=== PATIENT | male | born 1955 | race Caucasian/White ===

== ENCOUNTER 2018-08-28 05:03 | Outpatient (CLI) | payer BC, MEDICARE | END 2018-08-28 23:59 | disposition home or self-care (01) | LOC: DIABETIC 05:03 | PROVIDERS: ATTEND Specialist | DX: E11.69 Type 2 diabetes mellitus with other specified complication (principal); M85.80 Other specified disorders of bone density and structure, unspecified site | CPT/HCPCS: G0108 ==